=== PATIENT | female | born 1985 | race African-American/Black ===

== ENCOUNTER 2023-04-07 12:24 | Emergency (ER) | payer BC ==
[~2023-04-07] VITALS: Ht 149.9 cm; Wt 82.0 kg
[2023-04-07] MEDS ORDERED: SODIUM CHLORIDE 0.9% 1,000 ML IV ONE ×2 (13:00→15:15)
[2023-04-07] MEDS ORDERED: FAMOTIDINE 20MG/2ML VIAL IV ONE (13:00)
[2023-04-07] MEDS ORDERED: ONDANSETRON HCL 4MG/2ML INJ IV ONE (13:00)
[2023-04-07 13:12] LABS: BASOPHILS % 0.2 % (0.0-2.0); EOSINOPHILS % 0.2 % (0.0-5.0); HEMATOCRIT. 33.9 % (36.0-48.0); HEMOGLOBIN. 11.1 g/dL (12.0-16.0); LYMPHOCYTES % 8.8 % (20.0-50.0); MEAN CORPUSCULAR HEMOGLOBIN 25.6 pg (28.0-32.0); MEAN CORPUSCULAR VOLUME 78.6 fL (81.0-99.0); MEAN PLATELET VOLUME 7.1 fl (7.4-10.4); MONOCYTES % 2.8 % (2.0-8.0); PLATELET 392 x1000/uL (130-400); RED BLOOD CELL COUNT 4.31 mill/uL (4.2-5.4); RED CELL DISTRIBUTION WIDTH 17.8 % (11.6-14.6)
[2023-04-07] MEDS ORDERED: MAGNESIUM/ALUMINUM HYDROXIDE/SIMETHICONE 30ML UDC PO ONE (13:15)
[2023-04-07 13:17] LABS: CHLORIDE 101 mEq/L (98-107)
[2023-04-07 13:20] LABS: HCG SCREEN NEGATIVE
[2023-04-07] MEDS ORDERED: MECLIZINE 25MG TABLET PO ONE (14:15)
[2023-04-07] MEDS ORDERED: METOCLOPRAMIDE HCL 10MG/2ML VIAL IV ONE (15:15)
[2023-04-07 18:00] VITALS: BP 134/77
== END 2023-04-07 18:29 | disposition home or self-care (01) ==
LOC: ER 14:14
DX: R10.13 Epigastric pain (principal); R11.2 Nausea with vomiting, unspecified; F41.9 Anxiety disorder, unspecified
CPT/HCPCS: 36415; 80053; 83690; 84484; 84703; 85025; 96361; 96374; 96375; 99285; J2405; J2765; J3490; J7030; J8597; Z7610